=== PATIENT | male | born 1965 | race African-American/Black ===

== ENCOUNTER 2025-01-09 18:03 | Emergency (ER) | payer MEDICAID ==
[~2025-01-09] VITALS: Ht 182.9 cm; Wt 80.0 kg
[2025-01-09 18:06] VITALS: O2SAT 97
[2025-01-09 19:16] VITALS: BP 110/75; PULSE 95; RESP 18; TEMP 36.8; O2SAT 97
[2025-01-09] MEDS: FAMOTIDINE 20MG/2ML VIAL IV NR (19:17)
[2025-01-09] MEDS: ONDANSETRON HCL 4MG/2ML INJ IV NR (19:17)
== END 2025-01-09 19:24 | disposition left against medical advice (07) ==
LOC: ER 18:03
DX: M25.562 Pain in left knee (principal); E11.22 Type 2 diabetes mellitus with diabetic chronic kidney disease; I13.2 Hypertensive heart and chronic kidney disease with heart failure and with stage 5 chronic kidney disease, or end stage renal disease; I50.9 Heart failure, unspecified; N18.6 End stage renal disease; Z99.2 Dependence on renal dialysis; W01.0XXA Fall on same level from slipping, tripping and stumbling without subsequent striking against object, initial encounter; Y93.89 Activity, other specified; Y92.89 Other specified places as the place of occurrence of the external cause; Y99.8 Other external cause status
CPT/HCPCS: 99283; Z7610 ×2; A4606